=== PATIENT | female | born 1955 | race Caucasian/White ===

== ENCOUNTER → 2016-12-10 | Outpatient (CLI) | payer BC ==
[~2016-12-10] MED LIST: ASCA500 PO; ASPEC81 PO; BP MED; GINKO BILOBA; MULT-513 PO; SIMV20TA2 PO; SYN50 PO
--- NOTE | 2016-12-10 15:24 | MAMMOGRAPHY REPORT ---
BILATERAL DIGITAL SCREENING MAMMOGRAM TOMOSYNTHESIS WITH CAD: 12/10/2016 CLINICAL HISTORY: Routine screening. Patient has no complaints. TECHNIQUE: Breast tomosynthesis in addition to standard 2D mammography was performed. Current study was also evaluated with a Computer Aided Detection (CAD) system. COMPARISON: Comparison is made to exams dated: 12/05/2015 mammogram, 11/29/2014 mammogram, 10/31/2012 mammogram, 02/26/2011 mammogram, 02/25/2010 mammogram - [facility], and 02/24/2009. BREAST COMPOSITION: There are scattered areas of fibroglandular density in both breasts. FINDINGS: No suspicious masses, calcifications, or areas of architectural distortion are noted in e ither breast. There has been no significant interval change compared to prior exams. IMPRESSION: ACR BI-RADS CATEGORY 1: NEGATIVE There is no mammographic evidence of malignancy. A 1 year screening mammogram is recommended. The p atient will receive written notification of the results. Approximately 10% of breast cancers are not detected with mammography. A negative mammographic repor t should not delay biopsy if a clinically suggestive mass is present. Joanna Obregon M.D. /:12/10/2016 12:41:01 Uat Tester: Samreen SLADE(R)(M), [facility] letter sent: Normal 1/2 BI-RADS Code: ACR BI-RADS Category 1: Negative
== END | disposition home or self-care (01) ==
LOC: C.MAMM 09:05
PROVIDERS: ATTEND Family Medicine
DX: Z12.31 Encounter for screening mammogram for malignant neoplasm of breast (principal)

== ENCOUNTER → 2017-04-01 | Outpatient (CLI) | payer BC | END | disposition home or self-care (01) | LOC: C.LAB1850 14:04 | PROVIDERS: ATTEND Internal Medicine Endocrinology, Diabetes & Metabolism | DX: E11.9 Type 2 diabetes mellitus without complications (principal) ==

== ENCOUNTER → 2017-08-05 | Outpatient (CLI) | payer BC | END | disposition home or self-care (01) | LOC: C.LAB1850 12:53 | PROVIDERS: ATTEND Internal Medicine Endocrinology, Diabetes & Metabolism | DX: E03.9 Hypothyroidism, unspecified (principal); E06.3 Autoimmune thyroiditis ==

== ENCOUNTER → 2017-11-01 | Outpatient (CLI) | payer BC ==
--- NOTE | 2017-11-01 08:51 | DIAGNOSTIC IMAGING REPORT ---
LEFT ANKLE MRI CLINICAL HISTORY: L ANKLE PAIN TECHNIQUE: Multiplanar multisequence MRI of the left ankle was performed without the use of intravenous contrast. COMPARISON STUDY: None. FINDINGS: No fracture or dislocation within the left ankle. Mild subchondral edema at the subtalar joint and a few small areas of cystic change consistent with degenerative change. There is also mild edema within the anterior talus due to the suspected talonavicular degenerative change. The medial and lateral stabilizing ligaments are intact. Mild cartilage space narrowing at the tibiotalar joint. Mild focal thickening of the peroneus longus tendon proximally. This is best seen on axial image 18. The flexor and extensor tendons are normal in course, caliber, and signal intensity. The Achilles tendon and plantar fascia are intact. IMPRESSION: 1. No fracture or dislocation within the left ankle. 2. 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 3. Mild peroneus longus tendinopathy. Electronically signed by: Ari Stiles M.D. 11/01/2017 8:49 AM Dictated Date/Time: 11/01/2017 8:36 AM
--- NOTE | 2017-11-25 10:20 | CODING QUERY NO DIAGNOSIS ---
TREATMENT RENDERED WITHOUT A DIAGNOSIS To promote full compliance with coding requirements relating to patient care, physician participation is requested in all cases of ski maker uncertainty. Please assist us with providing a diagnosis/symptom for the test(s) below: A diagnosis/symptom was not documented on your Order. A valid diagnosis/symptom is required to bill all insurances. Please remember that we are unable to code a diagnosis of rule out, probable, possible, questionable, or suspected. Tests that require a diagnosis: DOS: 11/01/17 * MRI LOWER EXT JOINT DIAGNOSIS: Provider Signature: Date: Thank you Anna Muñiz [employer] Once completed, please kindly fax back to [phone] For questions please call [phone]
== END | disposition home or self-care (01) ==
LOC: C.MRI 07:39
PROVIDERS: ATTEND Podiatrist Foot & Ankle Surgery
DX: M76.72 Peroneal tendinitis, left leg (principal)